=== PATIENT | female | born 1960 | race Caucasian/White ===

== ENCOUNTER 2021-12-13 10:03 | Outpatient (CLI) | payer MEDICARE, SELFPAY ==
--- NOTE | ~2021-12-13 | XR_ITS ---
XR chest 2V INDICATION: Shortness of breath. Recent Covid infection. TECHNIQUE: 2 view chest. FINDINGS: No prior studies for comparison. There is mild bilateral interstitial prominence and peribronchial cuffing. There is no focal consoli dation, pleural effusion, or pneumothorax. The cardiomediastinal silhouette is normal. IMPRESSION: 1. Findings most consistent with bronchiolitis versus an atypical or viral pneumonia. Reviewed, dictated and finalized at location A. IMPRESSION: 1. Findings most consistent with bronchiolitis versus an atypical or viral p[facility].
--- NOTE | 2021-12-13 10:00 | ECG_ITS ---
Measurements Intervals [place] Rate: 89 P: 58 VT: 162 QRS: 5 QRSD: 88 T: 33 QT: 348 QTc: 425 Interpretive Statements SINUS RHYTHM LOW QRS VOLTAGE IN PRECORDIAL LEADS BORDERLINE ECG NO PREVIOUS ECG AVAILABLE FOR COMPARISON Electronically Signed On 12-13-2021 14:14:56 CDT by Shiv Calvert M.D.
[2021-12-13 10:37] LABS: Basophils Absolute Auto 0.1 K/mm3 (0.0-0.1); Basophils Percent Auto 0.6 % (0.2-1.2); Eosinophils Absolute Auto 0.2 K/mm3 (0-0.3); Eosinophils Percent Auto 1.7 % (0-4.4); Hemoglobin 12.7 g/dL (12.0-15.0); Immature Granulocyte Absolute 0.07 K/mm3 (0.00-0.031); Immature Granulocyte Percent A 0.7 % (0-0.5); Lymphocytes Absolute Auto 3.02 K/mm3 (0.9-3.2); Lymphocytes Percent Auto 29.1 % (18.3-44.2); Mean Corpuscular Hemoglobin 31.4 pg (26-34); Mean Corpuscular Volume 101.2 fl (80-100); Mean Platelet Volume 10.7 fl (7.4-10.4); Monocytes Percent Auto 9.4 % (2.6-8.5); Neutrophils Absolute Auto 6.1 K/mm3 (1.3-6.7); Neutrophils Percent Auto 58.5 % (45.5-73.1); Platelet Count Result 190 k/mm3 (150-375); Red Blood Count 4.05 M/mm3 (4.2-5.4); Red Cell Distribution Width 14.8 % (11.5-14.5); White Blood Count 10.4 K/mm3 (4.5-10.0)
[2021-12-13 10:47] LABS: Anion Gap 9 mmol/L (8-16); Blood Urea Nitrogen 20 mg/dL (7-17); Calcium 8.9 mg/dL (8.4-10.2); Carbon Dioxide 26 mmol/L (22-30); Chloride 104 mmol/L (98-107); Estimated Glomerular Filt Rate 33; Glucose 126 mg/dL (65-110); Potassium 4.6 mmol/L (3.4-5.0); Sodium 139 mmol/L (137-145)
[2021-12-13 11:15] LABS: Prothrombin Time 12.5 Seconds (11.1-14.7)
[2021-12-13 11:16] LABS: Partial Thromboplastin Time 26.8 SECONDS (22.3-36.8)
== END 2021-12-13 10:04 | disposition home or self-care (01) ==
LOC: ANHSURGERY 10:09
PROVIDERS: Anesthesiology; PCP Pediatrics; Visit Provider Surgery
DX: K63.5 Polyp of colon (principal); N28.9 Disorder of kidney and ureter, unspecified
CPT/HCPCS: 36415; 71046; 80048; 85025; 85610; 85730; 86850; 86900; 86901; 93005

== ENCOUNTER 2021-12-15 01:15 | Day surgery (SDC) | payer MEDICARE, SELFPAY ==
[2021-12-08 14:36] VITALS: BMI 44.4
--- NOTE | 2021-12-08 14:59 | PC.NURSE ---
Report to the Outpatient Waiting Room, entrance under the green pavilion located off [facility], at time 7:00 on date 12/15/21. OR Time: 9:00. - You and your visitor will be asked a series of questions to screen for COVID 19 for your protection. - Only one visitor is allowed at this time. - The patient visitor is requested to leave or wait in car when not with patient. - A mask is required within the hospital. Patients may have clear liquids (water, carbonated beverages, clear teas, apple juice) until 3 hours prior to surgery (6:00) with a maximum of 20 ounces. - No food from midnight until time of surgery Take the following medications with a SIP of water the morning of surgery: BUPROPION, DOXYCYCLINE, DULOXETINE, PREGABALIN, TRAMADOL AND FLEXERIL (IF NEEDED) Medications to discontinue per physician: VITAMINS/SUPPLEMENTS Date to take last dose: 12/11/21 Please no make-up, nail irish, hairspray, perfume, deodorant, or body powder the day of surgery. No jewelry (including any body piercings) or valuables the day of surgery, leave them at home. Please take a shower or bath the night before, or the morning of, surgery with an antibacterial soap (HIBICLENS). Wear comfortable, loose fitting clothing. - Jewelry must be removed prior to entering the operating room. Rings and piercings that are not removed may be cut off. - The hospital will not accept responsibility for valuables. - Please leave all valuables, including medications, at home the day of surgery. If you are going home after surgery, a licensed tow motor driver must drive you home. - NO public transportation without another adult. - We recommend that an adult stay with you for 24 hours following discharge. - We also recommend that you do not drive, make important decision, drink alcoholic beverages, or take any drugs that were not prescribed by your health care provider for at least 24 hours after your discharge time. Follow any additional instructions given to you from your surgeon. If you or anyone in your household have experienced Covid symptoms in the past week, please notify your surgeon or the nurse liaison at the phone number below for possible testing. Telephone instructions given to PT - PIYUSH TRAYLOR and asked if any additional questions and then verbalized understanding. Patient advised to call surgeon office or pre surgery nurse liaison [phone] if any additional questions.
[2021-12-15] VITALS (13 sets, daily range): BP systolic 88–125; BP diastolic 45–85; PULSE 64–79; RESP 12–20; TEMP 36.4–36.5; O2SAT 94–100
--- NOTE | 2021-12-15 07:08 | WPDHPUPDATE1 ---
History and Physical Update Update Date/Time: 12/15/21 07:08 History and Physical has been reviewed, including an updated exam of the patient. There are NO changes in the patient's condition. Risks, benefits, and alternatives have been discussed and questions answered. Patient agrees to proceed with procedure.
[2021-12-15] MEDS: ACETAMINOPHEN 500 MG TABLET 1000 MG PO (07:45)
[2021-12-15] MEDS: LACTATED RINGERS 1,000 ML 30 ML IV CONT ×3 (08:05→12:18)
[2021-12-15 08:12] LABS: Glucose Point of Care 138 mg/dl (65-105)
--- NOTE | 2021-12-15 08:26 | WPDANESEPPF ---
Anes - Initial Pre Proc Eval Procedure: Operation Date: 12/15/21 09:00 Proposed Procedures p Laparoscopic Partial Cecal Resection - Leland Solomon MD Date/Time: 12/15/21 08:26 Surgeon: Leland Solomon MD Pre Op Diagnosis: cecal polyp Patient Data Age: 60 Gender: F Height: 1.65 m Weight: 121.11 kg Allergies Allergy/AdvReac Type Severity Reaction Status Date / Time codeine AdvReac Intermediate RASH/N&V Verified 12/15/21 07:34 Home Medications Medication Instructions Recorded Confirmed Type albuterol sulfate 90 mcg/actuation 1 inh inhalation Q4H PRN 11/17/21 12/15/21 History aerosol inhaler Bronchospasm allopurinol 100 mg tablet 100 mg PO DAILY 11/17/21 12/15/21 History bupropion HCl 200 mg tablet,12 hr 200 mg PO BID 11/17/21 12/15/21 History sustained-release (Wellbutrin SR) calcium carbonate 600 mg calcium 600 mg PO DAILY 11/17/21 12/15/21 History (1,500 mg) tablet (Calcium) cyclobenzaprine 10 mg tablet 10 mg PO TID PRN Pain 11/17/21 12/15/21 History dicyclomine 10 mg capsule 10 mg PO BID 11/17/21 12/15/21 History duloxetine 60 mg capsule,delayed 60 mg PO DAILY 11/17/21 12/15/21 History release ergocalciferol (vitamin D2) 1,250 1,250 mcg PO WEEKLY 11/17/21 12/15/21 History mcg (50,000 unit) capsule (Vitamin D2) furosemide 40 mg tablet (Lasix) 40 mg PO QAM PRN Edema 11/17/21 12/15/21 History lisinopril 5 mg tablet 5 mg PO DAILY 11/17/21 12/15/21 History omeprazole 40 mg capsule,delayed 40 mg PO DAILY 11/17/21 12/15/21 History release pregabalin 75 mg capsule (Lyrica) 75 mg PO BID 11/17/21 12/15/21 History sodium bicarbonate 325 mg tablet 325 mg PO QID 11/17/21 12/15/21 History tramadol 50 mg tablet 50 mg PO Q6H PRN Pain 11/17/21 12/15/21 History doxycycline monohydrate 100 mg 100 mg PO BID 12/08/21 12/15/21 History capsule rosuvastatin 40 mg tablet 40 mg PO HS 12/08/21 12/15/21 History trazodone 100 mg tablet 200 mg PO HS 12/08/21 12/15/21 History Laboratory Tests 12/15/21 08:05 POC Capillary Glucose 138 mg/dl H mg/dl (65-105) Patient hx anesthesia problems: none Family hx anesthesia problems: none Results Review: All pre-operative results and documents have been reviewed as part of the pre-operative evaluation. [facility] Past Medical History Medical History COPD (chronic obstructive pulmonary disease) Diabetes GERD (gastroesophageal reflux disease) High cholesterol Kidney disease Stomach ulcer Surgical History Surgical History H/O bilateral cataract extraction H/O colonoscopy 11/02/2021 H/O esophagogastroduodenoscopy 11/02/2021 History of History of hysterectomy History of tonsillectomy Hx of cholecystectomy Family History Family History Father Heart disease Diabetes mellitus Lung cancer Mother Diabetes mellitus Kidney failure Social History Social History Social History: every day caffeine use- 6-8 Peps[employer] per day. Smoking packs per day: 2 Smoking cigarettes per day: 40.0 Years smoked: 45 Smoking pack-years: 90.00 Smoking status: Current every day smoker Tobacco type: cigarettes Additional smoking assessment comments: RECENTLY CUT BACK TO 1 PACK PER DAY Alcohol intake: never Alcohol use details: rare alcohol intake- maybe 2 drinks per year Substance use: never Substance use type: does not use Living arrangements: alone Additional occupation/education comments: disabled Gender identity (if verbalized by the patient): Female Spiritual care concerns: No Anes - Eval Final PreProcedure Day of Procedure 12/15/21 08:26 Patient weight: morbidly obese Heart: regular rate and rhythm Lungs: decreased breath sounds Airway: Mallampati scale class II Neuro
[2021-12-15] MEDS: KETOROLAC 15 MG/ML VIAL (*BKC) IV PUSH (08:40)
[2021-12-15] MEDS: ceFAZolin 3 GM/D5W 100 ML 100 ML IVPB (08:41)
[2021-12-15] MEDS: metroNIDAZOLE 500 MG/ISO 100ML 500 MG/100 ML BAG 100 MG IVPB (08:52)
[2021-12-15] MEDS: BUPIVACAINE/EPINEPHRINE 0.25% 50 ML VIAL INFILTRATE (10:31)
[2021-12-15 11:08] LABS: Glucose Point of Care 159 mg/dl (65-105)
[2021-12-15] MEDS: fentaNYL CITRATE INJ (*CRX) 100 MCG/2 ML VIAL 25 MCG IV PUSH ×8 (11:20→12:25)
--- NOTE | 2021-12-15 11:24 | SUR.PHASEI ---
1122: Simple mask removed.
--- NOTE | 2021-12-15 11:53 | W.PM.PROC2 ---
Procedure Note - Detailed Date of Procedure 12/15/21 Pre-op Diagnosis cecal polyp Post-op Diagnosis Same Procedure Performed Segmental or partial cecal resection Surgeon Leland Solomon MD Developmental Specialist Veronica ZUÑIGA Anesthesia General and Local (0.25% Marcaine with epinephrine) Indications Patient underwent colonoscopy and was found to have a cecal polyp which protruded into the appendiceal orifice. She has a history of a previous polyp very near the appendix in the cecum which was removed in 2016 at colonoscopy. The recent colonoscopy and polyp was unable to be removed colonoscopically as it was protruding into the appendix. Patient is poor health with severe emphysema, morbid obesity, [id number] diabetes, and a current smoker. She is taken to surgery now for segmental or partial cecal resection to excise the polyp. This excision will include the appendix as the polyp is quite close to the appendix. Findings The initial partial cecal resection showed the polyp to be very close to the margin. A 2nd segmental cecal resection was then performed to obtain a clear margin. I examined the initial specimen and the polyp was well away from the area of the terminal ileum such that a 2nd segmental resection could be done without risk of compromising the ileocecal junction. Description of Procedure The patient was taken to surgery and induced into general anesthesia. The abdomen is prepped and draped. Initial trocar was a 5 mm trocar in the left subcostal position. This was then applied Medical optical trocar. Local was infiltrated prior to placement of each of the trocars. Once this trocar was in position, we insufflated and reviewed the abdominal findings. There were many anterior abdominal wall adhesions primarily of omentum but also some of the colon and even the liver. A 2nd 5 mm trocar was placed in the mid abdomen just left of the midline. Through this trocar we took down adhesions using almost entirely sharp dissection and very little cautery. Most of the adhesions were taken down such that the anterior abdominal wall was largely available for good visualization of the right colon and additional trocar placement. The adhesions of the liver and some of the colon were left in place. A 12 mm trocar was then placed in the left lower abdomen just left of midline. The patient was placed in Trendelenburg with the right-side elevated. The cecum and appendix were easily found. Using sharp dissection as well as some cautery I mobilized the appendix and also mobilized the cecum and some of the proximal ascending colon. The cecum itself was quite mobile and larger in size. I elevated the appendix and dissected in the mesoappendix. The mesoappendix was cauterized as was the appendiceal artery. The mesoappendix was divided and the base of the appendix was skeletonized. I took down some additional adhesions of the ligament of Trebes on the terminal ileum. This allowed good access to the cecum adjoining the appendix and visualization of the ileocecal junction. An additional 5 mm port was then placed in the right mid abdomen. This was used to place traction on the distal ileal ligament. I then introduced the echelon stapler via the 12 mm lower abdominal port. I positioned the cecum adjacent to the appendix such that a sizable piece of cecum could be removed with the appendix. I checked and recheck that I was not encroaching on the ileocecal junction. I went ahead and fired the echelon. The staple line was satisfactory and included all of the cecum to be divided. An Endo-Catch bag was then used and the specimen was retrieved. I then opened the specimen on the back table, excising the staple line. I kept very superficial in doing this such that once that was done, I did have to open some mucosa and actually see inside the specimen. It appeared we were close to the polyp although I could not see that we had cut through the polyp in any way. I
--- NOTE | 2021-12-15 11:55 | SUR.PHASEI ---
Dr. Zelaya aware of soft BP.
--- NOTE | 2021-12-15 12:20 | SUR.PHASEI ---
RN got patient up in recliner in PACU about 1215.
[2021-12-15] MEDS: oxyCODONE/ACETAMINOPHEN (*CRX) 5-325 MG TABLET 1 TABLET PO (12:59)
== END 2021-12-15 13:41 | disposition home or self-care (01) ==
PROVIDERS: PCP Pediatrics; Visit Provider Surgery
PROC: 0DTJ4ZZ Resection of Appendix, Percutaneous Endoscopic Approach (ICD-10-PCS; CPT 44970; principal; 2021-12-15 09:00)
DX: D12.0 Benign neoplasm of cecum (principal); J44.9 Chronic obstructive pulmonary disease, unspecified; E11.9 Type 2 diabetes mellitus without complications; K21.9 Gastro-esophageal reflux disease without esophagitis; E78.00 Pure hypercholesterolemia, unspecified; F17.210 Nicotine dependence, cigarettes, uncomplicated; E66.01 Morbid (severe) obesity due to excess calories; Z68.41 Body mass index [BMI] 40.0-44.9, adult; Z79.51 Long term (current) use of inhaled steroids
CPT/HCPCS: 44204; 82948; 88309; 88329; A9270; J0330; J0690; J1100; J1885; J2250; J2370; J2405; J2704; J2710; J3010; J7030; J7120

== ENCOUNTER 2022-03-03 00:38 | Day surgery (SDC) | payer MEDICARE, SELFPAY ==
[2022-02-24 09:27] VITALS: BMI 43.9
--- NOTE | 2022-02-24 09:33 | PC.NURSE ---
Report to the Outpatient Waiting Room, entrance under the green pavilion located off [facility], at time 1000 on date 03/03/22. OR Time: 1200. Time changes happen often and if your time is changed the preop area will call you the afternoon before. - You and your visitor will be asked to self-screen and do not enter if you have any COVID symptoms. - We encourage only one visitor and NO visitors under age 16 are allowed at this time. Your visitor will receive communication by the phone number that is given day of service. - The patient visitor is requested to social distance or may leave the building when not with patient due to restrictions. - A mask is required within the hospital. Patients may have clear liquids (water, carbonated beverages, clear teas, apple juice) until 3 hours prior to surgery with a maximum of 20 ounces. - No food from midnight until time of surgery Take the following medications with a SIP of water the morning of surgery: BUPROPION, DULOXETINE, PREGABALIN, TRAMADOL/FLEXERIL IF NEEDED Medications to discontinue per physician: VITAMINS/SUPPLEMENTS Date to take last dose: 02/27/22 Please no make-up, nail albanian, hairspray, perfume, deodorant, or body powder the day of surgery. No jewelry (including any body piercings) or valuables the day of surgery, leave them at home. Please take a shower or bath the night before, or the morning of, surgery with an antibacterial soap. Wear comfortable, loose fitting clothing. - Jewelry must be removed prior to entering the operating room. Rings and piercings that are not removed may be cut off. - The hospital will not accept responsibility for valuables. - Please leave all valuables, including medications, at home the day of surgery. If you are going home after surgery, a licensed flatbed driver must drive you home. - NO public transportation without another adult. - We recommend that an adult stay with you for 24 hours following discharge. - We also recommend that you do not drive, make important decision, drink alcoholic beverages, or take any drugs that were not prescribed by your health care provider for at least 24 hours after your discharge time. Follow any additional instructions given to you from your surgeon. If you or anyone in your household have experienced Covid symptoms in the past week, please notify your surgeon or the nurse liaison at the phone number below for possible testing. Telephone instructions given to KEVIN - PIYUSH TRAYLOR and asked if any additional questions and then verbalized understanding. Patient advised to call surgeon office or pre surgery nurse liaison [phone] if any additional questions.
--- NOTE | 2022-03-02 10:29 | WPDANESEPPF ---
Anes - Initial Pre Proc Eval Procedure: Operation Date: 03/03/22 12:00 Proposed Procedures p Excision of Skin Cancer Right Forearm - Leland Solomon MD Date/Time: 03/02/22 10:29 Surgeon: Leland Solomon MD Pre Op Diagnosis: Squamous Cell Ca Right Forearm Patient Data Age: 61 Gender: F Height: 1.65 m Weight: 119.75 kg Allergies Allergy/AdvReac Type Severity Reaction Status Date / Time codeine AdvReac Intermediate RASH/N&V Verified 03/03/22 10:27 Home Medications Medication Instructions Recorded Confirmed Type albuterol sulfate 90 mcg/actuation 1 inh inhalation Q4H PRN 11/17/21 03/03/22 History aerosol inhaler Bronchospasm allopurinol 100 mg tablet 100 mg PO DAILY 11/17/21 03/03/22 History bupropion HCl 200 mg tablet,12 hr 200 mg PO BID 11/17/21 03/03/22 History sustained-release (Wellbutrin SR) calcium carbonate 600 mg calcium 600 mg PO DAILY 11/17/21 03/03/22 History (1,500 mg) tablet (Calcium) cyclobenzaprine 10 mg tablet 10 mg PO TID PRN Pain 11/17/21 03/03/22 History dicyclomine 10 mg capsule 10 mg PO BID 11/17/21 03/03/22 History duloxetine 60 mg capsule,delayed 60 mg PO DAILY 11/17/21 03/03/22 History release furosemide 40 mg tablet (Lasix) 40 mg PO QAM PRN Edema 11/17/21 03/03/22 History lisinopril 5 mg tablet 5 mg PO DAILY 11/17/21 03/03/22 History omeprazole 40 mg capsule,delayed 40 mg PO DAILY 11/17/21 03/03/22 History release pregabalin 75 mg capsule (Lyrica) 75 mg PO BID 11/17/21 03/03/22 History sodium bicarbonate 325 mg tablet 325 mg PO QID 11/17/21 03/03/22 History tramadol 50 mg tablet 50 mg PO Q6H PRN Pain 11/17/21 03/03/22 History rosuvastatin 40 mg tablet 40 mg PO HS 12/08/21 03/03/22 History trazodone 100 mg tablet 200 mg PO HS 12/08/21 03/03/22 History ergocalciferol (vitamin D2) 1,250 5,000 mcg PO WEEKLY 02/10/22 03/03/22 History mcg (50,000 unit) capsule (Vitamin D2) Patient hx anesthesia problems: none Family hx anesthesia problems: none Results Review: All pre-operative results and documents have been reviewed as part of the pre-operative evaluation. [facility] Past Medical History Medical History (Updated 03/02/22 @ 10:30 by Mele Gómez DO) CKD (chronic kidney disease) stage III COPD (chronic obstructive pulmonary disease) Diabetes Fibromyalgia GERD (gastroesophageal reflux disease) Hiatal hernia High cholesterol Kidney disease TABBY (obstructive sleep apnea) Stomach ulcer Surgical History Surgical History H/O bilateral cataract extraction H/O colonoscopy 11/02/2021 H/O esophagogastroduodenoscopy 11/02/2021 History of History of colon resection Segmental or partial cecal resection 12/15/21 History of hysterectomy History of tonsillectomy Hx of cholecystectomy Family History Family History Father Heart disease Diabetes mellitus Lung cancer Mother Diabetes mellitus Kidney failure Social History Social History Social History: every day caffeine use- 6-8 Pepsi's per day. Smoking packs per day: 2 Smoking cigarettes per day: 40.0 Years smoked: 45 Smoking pack-years: 90.00 Smoking status: Current every day smoker Tobacco type: cigarettes Additional smoking assessment comments: DOWN TO 1 PACK PER DAY SINCE ~NOVEMBER Alcohol intake: never Alcohol use details: rare alcohol intake- maybe 2 drinks per year Substance use: never Substance use type: does not use Living arrangements: alone Additional occupation/education comments: disabled Gender identity (if verbalized by the patient): Female Spiritual care concerns: No Anes - Eval Final PreProcedure Day of Procedure 03/02/22 10:29 Patient weight: morbidly obese Heart: regular rate and rhythm Lungs: clear to auscultation Airway: Mallamp
[2022-03-03 10:18] VITALS: BP 124/66; PULSE 83; RESP 20; TEMP 36.3; O2SAT 100
[2022-03-03] MEDS: LACTATED RINGERS 1,000 ML 30 ML IV CONT (10:54)
[2022-03-03 11:10] LABS: Glucose Point of Care 101 mg/dl (65-105)
[2022-03-03 11:14] LABS: INR 1.1
[2022-03-03 11:15] LABS: Partial Thromboplastin Time 27.4 SECONDS (22.3-36.8)
--- NOTE | 2022-03-03 11:50 | WPDHPUPDATE1 ---
History and Physical Update Update Date/Time: 03/03/22 11:50 History and Physical has been reviewed, including an updated exam of the patient. There are NO changes in the patient's condition. Risks, benefits, and alternatives have been discussed and questions answered. Patient agrees to proceed with procedure.
[2022-03-03] MEDS: ceFAZolin 2 GM/D5W 50 ML 2 GM/50 ML BAG IVPB (12:03)
[2022-03-03] MEDS: BUPIVACAINE/EPINEPHRINE 0.25% 50 ML VIAL 10 ML INFILTRATE (12:42)
[2022-03-03 13:06] VITALS: BP 95/55; PULSE 66; RESP 16; O2SAT 98
--- NOTE | 2022-03-03 13:27 | W.PM.PROC2 ---
Procedure Note - Detailed Date of Procedure 03/03/22 Pre-op Diagnosis Squamous Cell Ca Right Forearm Post-op Diagnosis Same Procedure Performed Excision 2 cm skin cancer right forearm with 3 mm margins, 2.6 cm excision. 9 cm layered closure. Surgeon Leland Solomon MD Shoe Cobbler Ester Krueger [facility] Anesthesia MAC and Local (0.25% Marcaine with epinephrine) Indications Patient had a suspicious skin lesion on the right distal forearm dorsal aspect. She had a punch biopsy of this and it was found to be squamous cell carcinoma the skin. She is taken to surgery now for excision. Findings Skin lesion measured 2 cm x 1 cm and was irregular. The previous punch biopsy had healed adequately. Description of Procedure The patient was checked in the preoperative holding area. A general outline of the lesion as well as an anticipated elliptical excision was marked on the skin. Patient was then taken to the operating room. Anesthesia was introduced. The right arm was prepped and draped such that the lesion was easily visible in the field. Local anesthetic was infiltrated in the area of the anticipated incision. Incision was made and a 9 cm ellipse was created which had at least 3 mm margins from all aspects of the edge of the lesion. The skin ellipse was then carefully excised from the underlying subcutaneous. The specimen was sent to pathology in formalin. We then undermined the skin edges of both the proximal and distal aspect of the ellipse so that there would be more mobility for closure. Cautery was used for hemostasis. We flexed the wrist and then closed the wound with deeper layers of Vicryl suture. Subcuticular 4-0 and 3-0 Vicryl interrupted suture were then placed to approximate the skin. 4-0 nylon vertical mattress sutures were then placed to finish the skin closure. Wound was dressed with Xeroform gauze fluffs and Kerlix roll. A 4 in Taz wrap was then placed so that the wrist would be in a neutral hand position. Patient tolerated the procedure well. She was awakened and taken to outpatient surgery in good condition. Sponge and needle counts were correct x2. Estimated Blood Loss -5 Drains No Packing No Pathology Yes (Skin cancer right forearm) Complications No immediate complications Condition Stable Disposition Same day [facility] Billing Surgery - Charge Forward: Surgery Billing (Excision 2 cm skin cancer right forearm with 3 mm margins, 2.6 cm excision. 9 cm intermediate closure.)
[2022-03-03 13:30] VITALS: BP 87/55; PULSE 77; RESP 16
== END 2022-03-03 13:42 | disposition home or self-care (01) ==
PROVIDERS: Anesthesiology; PCP Pediatrics; Visit Provider Surgery
PROC: (CPT 11603; principal; 2022-03-03 12:00)
DX: C44.622 Squamous cell carcinoma of skin of right upper limb, including shoulder (principal); E11.22 Type 2 diabetes mellitus with diabetic chronic kidney disease; N18.30 Chronic kidney disease, stage 3 unspecified; J44.9 Chronic obstructive pulmonary disease, unspecified; M79.7 Fibromyalgia; K21.9 Gastro-esophageal reflux disease without esophagitis; E78.00 Pure hypercholesterolemia, unspecified; G47.33 Obstructive sleep apnea (adult) (pediatric); F17.210 Nicotine dependence, cigarettes, uncomplicated; E66.01 Morbid (severe) obesity due to excess calories; Z68.41 Body mass index [BMI] 40.0-44.9, adult; Z79.51 Long term (current) use of inhaled steroids; Z90.49 Acquired absence of other specified parts of digestive tract; Z86.010 Personal history of colon polyps
CPT/HCPCS: 11603; 12034; 36415; 82948; 85610; 85730; 88305; J0690; J2250; J2370; J2704; J3010; J7120